=== PATIENT | female | born 1995 | race Caucasian/White ===

== ENCOUNTER → 2017-12-22 | Outpatient (CLI) | payer OTHER ==
[2017-12-23 11:39] LABS: Candida species (DNA Probe) Negative (NEGATIVE); G. vaginalis (DNA Probe) Negative (NEGATIVE); T. vaginalis (DNA Probe) Negative (NEGATIVE)
== END | disposition home or self-care (01) ==
LOC: LAB 12:57 → LAB SHORT 12:57
PROVIDERS: Physician Assistant
DX: Z01.419 Encounter for gynecological examination (general) (routine) without abnormal findings (principal); Z11.3 Encounter for screening for infections with a predominantly sexual mode of transmission
CPT/HCPCS: 87480; 87510; 87624; 87660; G0145

== ENCOUNTER 2020-04-23 06:25 | Inpatient (IN) | payer OTHER ==
[~2020-04-23] VITALS: Ht 162.6 cm; Wt 139.0 kg
[2020-04-23 07:22] LABS: BASOPHILS ABSOLUTE AUTO 0.02 K/mm3 (0.00-0.23); BASOPHILS PERCENT AUTO 0 % (0-2); EOSINOPHILS ABSOLUTE AUTO 0.13 K/mm3 (0.00-0.68); EOSINOPHILS PERCENT AUTO 1 % (0-6); Hematocrit 35.3 % (33.0-51.0); Hemoglobin 11.6 g/dL (11.5-16.0); IMMATURE GRAN ABSOLUTE AUTO 0.09 K/mm3 (0.00-0.10); IMMATURE GRAN PERCENT AUTO 1 % (0-1); LYMPHOCYTES ABSOLUTE AUTO 2.61 K/mm3 (0.84-5.20); LYMPHOCYTES PERCENT AUTO 22 % (21-46); MONOCYTES ABSOLUTE AUTO 0.57 K/mm3 (0.16-1.47); MONOCYTES PERCENT AUTO 5 % (4-13); Mean Corpuscular HGB 28.2 pg (26.0-34.0); Mean Corpuscular HGB Conc 32.9 g/dL (31.5-36.5); Mean Corpuscular Volume 86 fL (80-100); Mean Platelet Volume 12.3 fL (9.1-12.4); NEUTROPHILS ABSOLUTE AUTO 8.59 K/mm3 (1.96-9.15); NEUTROPHILS PERCENT AUTO 72 % (41-73); Platelet Count 236 K/mm3 (150-400); RDW Coefficient Variation 13.1 % (11.7-14.2); RDW Standard Deviation 40.5 fL (35.1-46.3); Red Blood Cell Count 4.12 M/mm3 (3.80-5.20); White Blood Cell Count 12.01 K/mm3 (4.00-11.30)
[2020-04-24 09:35] LABS: PCO2 Cord - Arterial 47.4 mmHg (40-50); pH Cord - Arterial 7.31 (7.28-7.35)
[2020-04-24 09:36] LABS: PO2 Cord - Arterial < 13 mmHg (16-20)
[2020-04-24 09:37] LABS: PCO2 Cord - Venous 36.2 mmHg (40-50); PO2 Cord - Venous 26.6 mmHg (28-32); pH Umbilical Cord - Venous 7.39 (7.26-7.35)
--- NOTE | 2020-04-24 09:41 | NUR ---
04/24/20 0941 Alexia Mejia VIGOUROUS BABY BOY BORN AT 0919. WEIGHT AND APGARS SEE DELIVERY SUMMARY. CORD GASES PUT ON ICE AND GIVEN TO RCD.TAB. CORD BLOOD GIVEN TO CIRA DEE. METHERGINE GIVEN DR ROSS AFTER DELIVERY.
--- NOTE | 2020-04-24 14:00 | NUR ---
ASSUMED CARE REPT FROM Bhupinder QUINTANA RN
--- NOTE | 2020-04-24 19:01 | NUR ---
STABLE PT, REPT TO PM SHIFT, PT DOING WELL, HAVING GOOD PAIN CONTROL WITH PO MEDS, PT SISTER IN ROOM FOR SUPPORT AND ASSISTING WITH NB CARE
--- NOTE | 2020-04-25 06:36 | NUR ---
04-27-20 0600 up to shower, tolerated very well, voided, PAS off, binder back on
[2020-04-25 07:14] LABS: BASOPHILS ABSOLUTE AUTO 0.02 K/mm3 (0.00-0.23); BASOPHILS PERCENT AUTO 0 % (0-2); EOSINOPHILS ABSOLUTE AUTO 0.12 K/mm3 (0.00-0.68); EOSINOPHILS PERCENT AUTO 1 % (0-6); Hematocrit 31.4 % (33.0-51.0); Hemoglobin 9.7 g/dL (11.5-16.0); IMMATURE GRAN ABSOLUTE AUTO 0.05 K/mm3 (0.00-0.10); IMMATURE GRAN PERCENT AUTO 0 % (0-1); LYMPHOCYTES ABSOLUTE AUTO 1.99 K/mm3 (0.84-5.20); LYMPHOCYTES PERCENT AUTO 18 % (21-46); MONOCYTES PERCENT AUTO 7 % (4-13); Mean Corpuscular HGB 27.4 pg (26.0-34.0); Mean Corpuscular HGB Conc 30.9 g/dL (31.5-36.5); Mean Corpuscular Volume 89 fL (80-100); Mean Platelet Volume 12.2 fL (9.1-12.4); NEUTROPHILS ABSOLUTE AUTO 8.35 K/mm3 (1.96-9.15); NEUTROPHILS PERCENT AUTO 74 % (41-73); Platelet Count 187 K/mm3 (150-400); RDW Coefficient Variation 13.3 % (11.7-14.2); RDW Standard Deviation 43.6 fL (35.1-46.3); Red Blood Cell Count 3.54 M/mm3 (3.80-5.20); White Blood Cell Count 11.33 K/mm3 (4.00-11.30)
--- NOTE | 2020-04-25 09:40 | NUR ---
ASSUMED CARE STABLE PT CARING FOR SELF AND NB WELL, SISTER AT BEDSIDE ASSISTING WITH CARE, VSS, BREAST AND BOTTLE FEEDING NB HAVING GOOD PAIN CONTROL WITH PO MEDS
--- NOTE | 2020-04-25 15:58 | NUR ---
PIV DOES NOT FLUSH WELL SITE RED SWOLLEN AND TENDER TO THE TOUCH
--- NOTE | 2020-04-25 17:30 | NUR ---
AMBULATING IN HALLS PUSHING NB IN CRIB
--- NOTE | 2020-04-25 18:49 | NUR ---
REPT TO PM SHIFT
[2020-04-26] MEDS ORDERED: PRENATAL PLUS PO (09:54)
== END 2020-04-26 10:52 | disposition home or self-care (01) | DRG 788 ==
LOC: OBS 06:25 → BC 06:29 → OBS 06:51 → BC 06:53
PROVIDERS: Obstetrics & Gynecology; ADMIT Nurse Practitioner Obstetrics & Gynecology
PROC: 00HU33Z Insertion of Infusion Device into Spinal Canal, Percutaneous Approach (ICD-10-PCS; 2020-04-23)
PROC: 3E0R3BZ Introduction of Anesthetic Agent into Spinal Canal, Percutaneous Approach (ICD-10-PCS; 2020-04-23)
PROC: 10D00Z1 Extraction of Products of Conception, Low, Open Approach (ICD-10-PCS; principal; 2020-04-24 08:30)
DX: O77.9 Labor and delivery complicated by fetal stress, unspecified (principal); O42.12 Full-term premature rupture of membranes, onset of labor more than 24 hours following rupture; O99.214 Obesity complicating childbirth; E66.01 Morbid (severe) obesity due to excess calories; Z3A.40 40 weeks gestation of pregnancy; Z37.0 Single live birth; O34.13 Maternal care for benign tumor of corpus uteri, third trimester; D25.2 Subserosal leiomyoma of uterus; O69.81X0 Labor and delivery complicated by cord around neck, without compression, not applicable or unspecified; O99.334 Smoking (tobacco) complicating childbirth; F17.210 Nicotine dependence, cigarettes, uncomplicated; O99.52 Diseases of the respiratory system complicating childbirth; J45.909 Unspecified asthma, uncomplicated
CPT/HCPCS: 36415; 51702; 81003; 82803; 85025; 86850; 86900; 86901; J0290; J0690; J1885; J2001; J2210; J2250; J2405; J2590; J2765; J3010; J7120; U0002

== ENCOUNTER 2021-04-05 05:30 | Inpatient (IN) | payer OTHER ==
[~2021-04-05] VITALS: Ht 162.6 cm; Wt 140.0 kg
[~2021-04-05 05:30] MED LIST: PRENATAL PLUS PO; TYLENOL325 M1 PO
[2021-04-05 05:56] LABS: BASOPHILS ABSOLUTE AUTO 0.02 K/mm3 (0.00-0.23); BASOPHILS PERCENT AUTO 0 % (0-2); EOSINOPHILS ABSOLUTE AUTO 0.12 K/mm3 (0.00-0.68); EOSINOPHILS PERCENT AUTO 1 % (0-6); Hematocrit 38.3 % (33.0-51.0); Hemoglobin 12.3 g/dL (11.5-16.0); IMMATURE GRAN ABSOLUTE AUTO 0.07 K/mm3 (0.00-0.10); IMMATURE GRAN PERCENT AUTO 1 % (0-1); LYMPHOCYTES ABSOLUTE AUTO 2.71 K/mm3 (0.84-5.20); LYMPHOCYTES PERCENT AUTO 28 % (21-46); MONOCYTES ABSOLUTE AUTO 0.62 K/mm3 (0.16-1.47); MONOCYTES PERCENT AUTO 7 % (4-13); Mean Corpuscular HGB 26.7 pg (26.0-34.0); Mean Corpuscular HGB Conc 32.1 g/dL (31.5-36.5); Mean Corpuscular Volume 83 fL (80-100); Mean Platelet Volume 11.7 fL (9.1-12.4); NEUTROPHILS ABSOLUTE AUTO 5.99 K/mm3 (1.96-9.15); NEUTROPHILS PERCENT AUTO 63 % (41-73); Platelet Count 245 K/mm3 (150-400); RDW Coefficient Variation 17.7 % (11.7-14.2); RDW Standard Deviation 53.4 fL (35.1-46.3); Red Blood Cell Count 4.61 M/mm3 (3.80-5.20); White Blood Cell Count 9.53 K/mm3 (4.00-11.30)
--- NOTE | 2021-04-05 08:05 | NUR ---
04/05/21 0805 ZohrehAlanis Bentley BABY BOY BORN AT 0755, APGARS 9/9 ,WT 3795, 8-6 LENGTH 21IN HEAD 14.25, CHEST 13IN. CORD GAS SENT WITH RT, CORD BLOOD GIVEN TO MALLORY DEE.
[2021-04-05 08:10] LABS: PO2 Cord - Arterial 15.1 mmHg (16-20); pH Cord - Arterial 7.23 (7.28-7.35)
[2021-04-05 08:11] LABS: PCO2 Cord - Venous 44.8 mmHg (40-50); PO2 Cord - Venous 32.8 mmHg (28-32); pH Umbilical Cord - Venous 7.34 (7.26-7.35)
[2021-04-06 06:32] LABS: BASOPHILS ABSOLUTE AUTO 0.02 K/mm3 (0.00-0.23); BASOPHILS PERCENT AUTO 0 % (0-2); EOSINOPHILS ABSOLUTE AUTO 0.08 K/mm3 (0.00-0.68); EOSINOPHILS PERCENT AUTO 1 % (0-6); Hematocrit 36.3 % (33.0-51.0); Hemoglobin 11.4 g/dL (11.5-16.0); IMMATURE GRAN ABSOLUTE AUTO 0.05 K/mm3 (0.00-0.10); IMMATURE GRAN PERCENT AUTO 1 % (0-1); LYMPHOCYTES ABSOLUTE AUTO 1.95 K/mm3 (0.84-5.20); LYMPHOCYTES PERCENT AUTO 22 % (21-46); MONOCYTES ABSOLUTE AUTO 0.66 K/mm3 (0.16-1.47); MONOCYTES PERCENT AUTO 7 % (4-13); Mean Corpuscular HGB 26.7 pg (26.0-34.0); Mean Corpuscular HGB Conc 31.4 g/dL (31.5-36.5); Mean Corpuscular Volume 85 fL (80-100); Mean Platelet Volume 11.5 fL (9.1-12.4); NEUTROPHILS ABSOLUTE AUTO 6.12 K/mm3 (1.96-9.15); NEUTROPHILS PERCENT AUTO 69 % (41-73); Platelet Count 206 K/mm3 (150-400); RDW Coefficient Variation 18.3 % (11.7-14.2); RDW Standard Deviation 56.4 fL (35.1-46.3); Red Blood Cell Count 4.27 M/mm3 (3.80-5.20); White Blood Cell Count 8.88 K/mm3 (4.00-11.30)
[2021-04-06] MEDS ORDERED: IBUP800 PO (12:24)
[2021-04-06] MEDS ORDERED: Percocet 5-3251 EACH PO (12:24)
== END 2021-04-06 13:23 | disposition home or self-care (01) | DRG 788 ==
LOC: BC 05:30
PROVIDERS: ADMIT Obstetrics & Gynecology
PROC: 10D00Z1 Extraction of Products of Conception, Low, Open Approach (ICD-10-PCS; principal; 2021-04-05 07:30)
DX: O34.211 Maternal care for low transverse scar from previous cesarean delivery (principal); D50.9 Iron deficiency anemia, unspecified; O99.02 Anemia complicating childbirth; O99.334 Smoking (tobacco) complicating childbirth; F17.290 Nicotine dependence, other tobacco product, uncomplicated; Z3A.39 39 weeks gestation of pregnancy; Z37.0 Single live birth; Z86.16 Personal history of COVID-19
CPT/HCPCS: 36415; 82803; 85025; 86850; 86900; 86901; A9270; J0690; J1885; J2370; J2590; J2765; J3010; J7120